=== PATIENT | male | born 1985 ===

== ENCOUNTER 2019-10-30 16:10 | Emergency (ER) | payer SELFPAY ==
--- NOTE | 2019-10-30 16:33 | RAD ---
EXAM: XR Toe(s) Lt Min 2 View DATE: 10/30/2019 4:17 PM INDICATION: Injury to left toe playing soccer COMPARISON: None. FINDING: There is a dorsal dislocation of the left great toe distal phalanx at the great toe IP join t. There is a small avulsion fracture off the plantar base of the great toe distal phalanx measuring 3 mm. There is soft tissue swelling surrounding the left great toe. IMPRESSION:Dorsal fracture dislocation of the left great toe IP joint.
[2019-10-30] MEDS ORDERED: Lidocaine 1% (PF) 30 ML VIAL ONE (17:33)
[2019-10-30] MEDS ORDERED: Bupivacaine 0.5% 10 ML VIAL ONE (17:33)
[2019-10-30] MEDS ORDERED: Adacel (T-DAP) 0.5 ML SYRINGE ONE (17:34)
[2019-10-30] MEDS ORDERED: Bacitracin 1 PK ONE (18:31)
--- NOTE | 2019-10-30 18:51 | RAD ---
EXAM: XR Toe(s) Lt Min 2 View DATE: 10/30/2019 6:26 PM INDICATION: Interval reduction COMPARISON: Prior toe radiograph dated October 30, 2019 at 5:20 PM. FINDING: There is been interval reduction of the dorsally dislocated great toe distal phalanx. There is improved alignment involving avulsion fracture of the plantar base of the great toe distal phalanx. IMPRESSION:Interval reduction
== END 2019-10-30 18:59 | disposition home or self-care (01) ==
LOC: ERS 16:10
DX: S92.422A Displaced fracture of distal phalanx of left great toe, initial encounter for closed fracture (principal); S80.812A Abrasion, left lower leg, initial encounter; F17.210 Nicotine dependence, cigarettes, uncomplicated; W50.0XXA Accidental hit or strike by another person, initial encounter; Y93.66 Activity, soccer
CPT/HCPCS: 28495; 90471; 90715; J2001; J3490